=== PATIENT | female | born 1960 | race Asian ===

== ENCOUNTER 2019-02-05 13:16 | Observation (INO) ==
[2019-02-05] MEDS ORDERED: ONDANSETRON INJ 2 MG/ML 2 ML VIAL IV STA (13:45)
[2019-02-05] MEDS ORDERED: SODIUM CHLORIDE 0.9% 1000ML 1,000 ML IV ONE (13:45)
--- NOTE | 2019-02-05 14:13 | XRay Report ---
XR chest 1V portable CLINICAL HISTORY: Cough. Fever. COMPARISON STUDY: No previous studies for comparison. FINDINGS: Exam is mildly compromised by motion artifact. Apparent bibasilar opacities are likely halie factual. There is no consolidation or evidence for pulmonary edema. There is suspected mild cardiomeg angelito. IMPRESSION: No acute cardiopulmonary findings. Electronically signed by: Indio Silverman M.D. 02/05/2019 2:12 PM
[2019-02-05 14:38] LABS: Basophils # (auto) 0.01 K/uL (0-0.2); Basophils % (auto) 0.1 %; Eosinophils # (auto) 0.04 K/uL (0-0.5); Eosinophils % (auto) 0.3 %; Hematocrit (blood only) 39.5 % (37-47); Hemoglobin 14.1 g/dL (12.0-16.0); Immature Granulocytes # (auto) 0.21 K/uL (0.00-0.02); Immature Granulocytes % (auto) 1.5 %; Lymphocytes % (auto) 2.9 %; Mean Corpuscular Hgb Conc 35.7 g/dL (32-36); Mean Corpuscular Volume 79.3 fL (80-100); Mean Platelet Volume 9.8 fL (7.4-10.4); Monocytes # (auto) 0.02 K/uL (0.11-0.59); Monocytes % (auto) 0.1 %; Neutrophils # (auto) 12.92 K/uL (1.4-6.5); Neutrophils % (auto) 95.1 %; Nucleated RBC # (auto) 0.02 K/uL (0-0); Nucleated RBC % (auto) 0.1 %; Platelet Count 213 K/uL (130-400); RDW Coefficient of Variation 13.2 % (11.5-14.5); RDW Standard Deviation 37.7 fL (36.4-46.3); Red Blood Count 4.98 M/uL (4.2-5.4)
--- NOTE | 2019-02-05 14:39 | Emergency Department Note ---
History of Present Illness General Chief complaint: Illness Stated complaint: CHILLS, NAUSEA, INDIGESTION History of Present Illness This patient is a 58-year-old female returns to the emergency department with co mplaints of ongoing epigastric pain, nausea and chills that started a few days ago. The patient was seen in the emergency department yesterday for similar symptoms. She is here for graduation, and very much wanted to be discharged home. The patient developed chills and body aches this morning. She also notes that the pain is now down in the right lower abdomen. She describes it as a dull, ache that is worse with movement. The patient also reports a mild, nonproductive cough. She denies any urinary symptoms. Of note, 1 of the patient's relatives was diagnosed with influenza. She has tried Tylenol and Pepcid [id number] with minimal relief of her symptoms. She has had some loose stool, but no watery stools. No blood or black, tarry stools. No hematemesis or coffee-ground emesis. Home Medications Home Medications Medication Instructions Recorded Confirmed Type ondansetron 4 mg PO Q6H PRN #10 tab 02/04/19 02/05/19 Rx Allergies Allergy/AdvReac Type Severity Reaction Status Date / Time cough medicine Allergy Mild Unknown Uncoded 02/05/19 18:30 Past Med/Surg History Medical History Acute abdominal pain Gallbladder disease (Chronic) Hx of gastroesophageal reflux (GERD) Suspected cause of chronic cough Neck pain Obesity Surgical History H/O section (Resolved) Social History Preferred Language: Khmer Communication Ability: Effective Stars Analytical Lead Required: No Beliefs That Will Affect Care: None marital status: Current Living Situation: Spouse and Family current occupational status: employed Other Information That Helps Us Care for You: Yes (Lives in [facility], 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) Feels Safe at Home: Yes Safety Concerns: Feels Safe At This Time Smoking Status: Current some day smoker Tobacco Type: cigarettes Do You Dip or Chew Tobacco: No Second Hand Exposure: No Tobacco Cessation Education Requested by Patient: No Hx Alcohol Use: No Hx Substance Use: No Review of Systems A total of 10 systems reviewed and were otherwise negative Physical Exam Vital Signs Vital Signs - 24 hr 02/05/19 17:01 02/05/19 18:29 02/05/19 18:32 Temperature 37.1 C Temperature Source Oral Pulse Rate [Apical] Pulse Rate [Right Finger] 96 H 93 H Pulse Rhythm [Apical] Pulse Rhythm [Right Finger] Regular Pulse Strength [Right Finger] Normal Respiratory Rate 20 20 Respiratory Effort / Characteristics Non-Labored Spontaneous Non-Labored Spontaneous Respiratory Depth Normal Normal Respiratory Pattern Regular Regular Blood Pressure [Left Arm] Blood Pressure [Right Arm] 97/60 L 115/66 Blood Pressure Mean [Left Arm] Blood Pressure Mean [Right Arm] 72 82 Blood Pressure Position [Left Arm] Blood Pressure Position [Right Arm] Lying Semi-fowlers Pulse Oximetry 97 100 Oxygen Delivery Method Room Air Room Air Room Air Oxygen Flow Rate 02/05/19 20:29 02/05/19 20:35 02/05/19 20:45 Temperature 36.7 C Temperature Source Temporal Artery Scan Pulse Rate [Apical] 113 H 100 H 87 Pulse Rate [Right Finger] Pulse Rhythm [Apical] Regular Regular Regular Pulse Rhythm [Right Finger] Pulse Strength [Right Finger] Respiratory Rate 22 16 17 Respiratory Effort / Characteristics Non-Labored Spontaneous Non-Labored Spontaneous Non-Labored Spontaneous Respiratory Depth Normal Normal Normal Respiratory Pattern Regular Regular Regular Blood Pressure [Left Arm] 162/86 H 142/78 H 117/69 Blood Pressure [Right Arm] Blood Pressure Mean [Left Arm] 111 99 85 Blood Pressure Mean [Right Arm] Blood Pressure Position [Left Arm] Semi-fowlers Semi-fowlers Semi-fowlers Blood Pressure Position [Right Arm] Pulse Oximetry 97 100 100 Oxygen Delivery Method Oxymask Oxymask Oxymask Oxygen Flow Rate 10 10 10 02/05/19 20:55 02/05/19 21:05 02/05/19 21:15 Temperature 36.6 C Temperature Source Temporal Artery Scan Pulse Rate [Apical] 87 87 80 Pulse Rate [Right Finger] Pulse Rhythm [Apical] Regular Regular Regular Pulse Rhythm [Right Finger] Pulse Strength [Right Finger] Respiratory Rate 15 15 16 Respiratory Effort / Characteristics Non-Labored Spontaneous Non-Labored Spontaneous Non-Labored Spontaneous Respiratory Depth Normal Normal Normal Respiratory Pattern Regular Regular Regular Blood Pressure [Left Arm] 106/61 98/49 L 104/52 L Blood Pressure [Right Arm] Blood Pressure Mean [Left Arm] 76 65 69 Blood Pressure Mean [Right Arm] Blood Pressure Position [Left Arm] Semi-fowlers Semi-fowlers Semi-fowlers Blood Pressure Position [Right Arm] Pulse Oximetry 98 98 97 Oxygen Delivery Method Nasal Cannula Nasal Cannula Nasal Cannula Oxygen Flow Rate 2 2 2 02/05/19 21:25 02/05/19 22:00 02/05/19 22:19 Temperature 37.3 C Temperature Source Oral Pulse Rate [Apical] Pulse Rate [Right Finger] 78 69 69 Pulse Rhythm [Apical] Pulse Rhythm [Right Finger] Regular Pulse Strength [Right Finger] Normal Respiratory Rate 16 16 16 Respiratory Effort / Characteristics Non-Labored Respiratory Depth Normal Respiratory Pattern Regular Blood Pressure [Left Arm] 97/59 L 109/67 118/69 Blood Pressure [Right Arm] Blood Pressure Mean [Left Arm] 71 81 85 Blood Pressure Mean [Right Arm] Blood Pressure Position [Left Arm] Lying Lying Blood Pressure Position [Right Arm] Pulse Oximetry 92 97 93 Oxygen Delivery Method Room Air Room Air Room Air Oxygen Flow Rate 02/05/19 23:25 02/06/19 00:24 02/06/19 03:51 Temperature 37.0 C 36.9 C 36.8 C Temperature Source Oral Oral Oral Pulse Rate [Apical] Pulse Rate [Right Finger] 70 73 72 Pulse Rhythm [Apical] Pulse Rhythm [Right Finger] Regular Regular Regular Pulse Strength [Right Finger] Normal Normal Normal Respiratory Rate 18 18 18 Respiratory Effort / Characteristics Respiratory Depth Normal Normal Normal Respiratory Pattern Regular Regular Regular Blood Pressure [Left Arm] 115/72 122/67 108/70 Blood Pressure [Right Arm] Blood Pressure Mean [Left Arm] 86 85 82 Blood Pressure Mean [Right Arm] Blood Pressure Position [Left Arm] Lying Lying Lying Blood Pressure Position [Right Arm] Pulse Oximetry 93 94 96 Oxygen Delivery Method Room Air Room Air Room Air Oxygen Flow Rate 02/06/19 07:25 02/06/19 12:07 02/06/19 15:46 Temperature 36.8 C 36.3 C L 36.6 C Temperature Source Oral Oral Oral Pulse Rate [Apical] Pulse Rate [Right Finger] 59 L 52 L 62 Pulse Rhythm [Apical] Pulse Rhythm [Right Finger] Pulse Strength [Right Finger] Respiratory Rate 16 16 18 Respiratory Effort / Characteristics Respiratory Depth Normal Respiratory Pattern Blood Pressure [Left Arm] 111/71 120/75 118/75 Blood Pressure [Right Arm] Blood Pressure Mean [Left Arm] 84 90 89 Blood Pressure Mean [Right Arm] Blood Pressure Position [Left Arm] Lying Lying Blood Pressure Position [Right Arm] Pulse Oximetry 97 98 100 Oxygen Delivery Method Oxygen Flow Rate Constitutional WD/WN, vitals as above Eyes EOM intact bilaterally ENMT external ear and nose normal, oropharynx normal Oral mucosa dry Neck trachea midline Respiratory normal respiratory effort, lungs clear to auscultation Cardiovascular RRR, no murmur, no edema Gastrointestinal (Abdomen) Tenderness to palpation in the right upper and right lower quadrant. No guarding or rebound tenderness. Abdomen is slightly distended, but soft. Bowel sounds present in all 4 quadrants. Musculoskeletal no cyanosis or clubbing, extremities motor strength 5/5 Skin no rashes, warm and dry Neurologic Alert and oriented x3. No focal motor deficits. Psychiatric Acting appropriately Course Patient was seen and examined Vital signs including blood pressure were reviewed medications list was verified with patient Labs were obtained, and a saline lock was established The patient was ordered Zofran 4 mg IV and 1 L of normal saline. She declined pain medication. Imaging was performed and reviewed These findings were discussed with the patient. She voiced understanding. A general surgery consult was placed. They agreed to evaluate the patient. The patient was taken to the OR from the emergency department in stable condition Consultations Consultation #1: Dr. Herman Administered Medications Enoxaparin Sodium (Lovenox) 40 mg SQ QAM [facility] Stop: 03/08/19 08:59 Last Admin: 02/06/19 08:57 Dose: 40 mg Documented by: [id number] Potassium Chloride/Dextrose/Sod Cl (D5w And 1/2nss + 30meq Kcl) 30 meq in 1,000 mls @ 80 mls/hr IV .[id number] [facility] Stop: 03/07/19 21:59 Last Admin: 02/06/19 11:32 Dose: 80 mls/hr Documented by: [id number] Infusion: 02/06/19 09:13 Dose: 0 mls/hr Documented by: [id number] Admin: 02/05/19 22:35 Dose: 80 mls/hr Documented by: [id number] Ciprofloxacin (Cipro) 400 mg in 200 mls @ 100 mls/hr IV Q12H [facility] Stop: 02/08/19 07:59 Last Infusion: 02/06/19 10:35 Dose: 0 mls/hr Documented by: [id number] Admin: 02/06/19 08:49 Dose: 100 mls/hr Documented by: [id number] Metronidazole (Flagyl) 500 mg in 100 mls @ 100 mls/hr IV Q8H YEE Stop: 02/08/19 07:59 Last Infusion: 02/06/19 09:48 Dose: 0 mls/hr Documented by: [id number] Admin: 02/06/19 08:53 Dose: 100 mls/hr Documented by: [id number] Ondansetron HCl (Zofran) 4 mg IV Q6H PRN PRN Reason: Nausea Stop: 03/07/19 18:47 Last Admin: 02/05/19 22:34 Dose: 4 mg Documented by: [id number] Discontinued Medications Bacitracin (Bacitracin) Confirm Administered Dose 45 appln .ROUTE .STK-MED ONE Stop: 02/05/19 18:25 Last Admin: 02/05/19 19:46 Dose: 45 appln Documented by: [id number] Bupivacaine HCl (Marcaine 0.5% Mpf) Confirm Administered Dose 30 ml .ROUTE .STK- MED ONE Stop: 02/05/19 18:25 Last Admin: 02/05/19 19:51 Dose: 20 ml Documented by: [id number] Sodium Chloride (Nss 1000ml) 1,000 mls @ 999 mls/hr IV .Q1H1M ONE Stop: 02/05/19 14:45 Last Infusion: 02/05/19 15:36 Dose: 0 mls/hr Documented by: [id number] Admin: 02/05/19 14:25 Dose: 999 mls/hr Documented by: [id number] Potassium Chloride (K Melo / Wtr) 10 meq in 100 mls @ 100 mls/hr IV ONE ONE Stop: 02/05/19 19:09 Last Infusion: 02/05/19 20:05 Dose: 0 mls/hr Documented by: [id number] Admin: 02/05/19 19:05 Dose: 100 mls/hr Documented by: [id number] Cefoxitin Sodium (Mefoxin) 2,000 mg in 60 mls @ 100 mls/hr IV 1845 ONE Stop: 02/05/19 19:20 Last Infusion: 02/05/19 23:26 Dose: 0 mls/hr Documented by: [id number] Admin: 02/05/19 19:10 Dose: 100 mls/hr Documented by: [id number] Potassium Chloride (K Melo / Wtr) 10 meq in 100 mls @ 100 mls/hr IV Q1H STA Stop: 02/05/19 19:45 Last Infusion: 02/05/19 20:40 Dose: 0 mls/hr Documented by: [id number] Admin: 02/05/19 19:40 Dose: 100 mls/hr Documented by: [id number] Cefoxitin Sodium 1,000 mg/ (Dextrose) 60 mls @ 100 mls/hr IV Q6H YEE Stop: 02/07/19 00:00 Last Infusion: 02/06/19 12:14 Dose: 0 mls/hr Documented by: [id number] Admin: 02/06/19 11:33 Dose: 100 mls/hr Documented by: [id number] Infusion: 02/06/19 06:29 Dose: 0 mls/hr Documented by: [id number] Admin: 02/06/19 05:53 Dose: 100 mls/hr Documented by: [id number] Infusion: 02/06/19 01:11 Dose: 0 mls/hr Documented by: [id number] Admin: 02/06/19 00:35 Dose: 100 mls/hr Documented by: [id number] Potassium Chloride (K Melo / Wtr) 10 meq in 100 mls @ 100 mls/hr IV Q1H YEE Stop: 02/05/19 22:59 Last Infusion: 02/05/19 23:35 Dose: 0 mls/hr Documented by: [id number] Admin: 02/05/19 22:35 Dose: 100 mls/hr Documented by: [id number] Ioversol (Optiray 320 100ml) 94 ml IV ONCE PRN PRN Reason: Interaction Checking Stop: 02/09/19 16:10 Last Admin: 02/05/19 16:12 Dose: 94 ml Documented by: [id number] Lidocaine HCl (Xylocaine 1% (Local)) Confirm Administered Dose 20 ml .ROUTE .STK-MED ONE Stop: 02/05/19 18:25 Last Admin: 02/05/19 19:52 Dose: 20 ml Documented by: [id number] Ondansetron HCl (Zofran) 4 mg IV NOW STA Stop: 02/05/19 13:46 Last Admin: 02/05/19 14:25 Dose: 4 mg Documented by: [id number] Medical Decision Making Medical Records Attestation: I reviewed the patient's medical records. Home Medications Current Medication List: was personally reviewed by me Laboratory Data Attestation: I reviewed the patient's lab results. Result diagrams: 02/06/19 05:22 02/06/19 05:22 Lab Results 02/05/19 02/05/19 02/05/19 Range/Units 13:45 13:45 14:23 WBC 13.60 H (4.8-10.8) K/uL RBC 4.98 (4.2-5.4) M/uL Hgb 14.1 (12.0-16.0) g/dL Hct 39.5 (37-47) % MCV 79.3 L (80-100) fL MCH 28.3 (25-34) pg MCHC 35.7 (32-36) g/dL RDW Std Deviation 37.7 (36.4-46.3) fL RDW Coeff of Tania 13.2 (11.5-14.5) % Plt Count 213 (130-400) K/uL MPV 9.8 (7.4-10.4) fL Immature Gran % (Auto) 1.5 % Neut % (Auto) 95.1 % Lymph % (Auto) 2.9 % [place] % (Auto) 0.1 % Eos % (Auto) 0.3 % Baso % (Auto) 0.1 % Immature Gran # (Auto) 0.21 H (0.00-0.02) K/uL Neut # (Auto) 12.92 H (1.4-6.5) K/uL Lymph # (Auto) 0.40 L (1.2-3.4) K/uL [place] # (Auto) 0.02 L (0.11-0.59) K/uL Eos # (Auto) 0.04 (0-0.5) K/uL Baso # (Auto) 0.01 (0-0.2) K/uL Absolute Nucleated RBC 0.02 H (0-0) K/uL Nucleated RBC % (auto) 0.1 % Toxic Vacuolation PT (9.0-12.0) Seconds INR (0.9-1.1) Sodium 133 L (136-145) mmol/L Potassium 3.2 L (3.5-5.1) mmol/L Chloride 99 (98-107) mmol/L Carbon Dioxide 24 (21-32) mmol/L Anion Gap 10.0 (3-11) BUN 12 (7-18) mg/dl Creatinine 1.09 (0.6-1.2) mg/dl Est Cr Clr Drug Dosing Not Reportable Est GFR ( Amer) 65.7 Est GFR (Non-Af Amer) 56.7 BUN/Creatinine Ratio 10.6 (10-20) Glucose 144 H (70-99) mg/dl Calcium 8.5 (8.5-10.1) mg/dl Total Bilirubin 0.9 D (0.2-1) mg/dl AST 16 (15-37) U/L ALT 29 (12-78) U/L Alkaline Phosphatase 157 H (45-117) U/L Total Protein 6.9 (6.4-8.2) gm/dl Albumin 3.2 L (3.4-5.0) gm/dl Globulin 3.7 (2.5-4.0) gm/dl Albumin/Globulin Ratio 0.9 (0.9-2) Lipase 153 (73-393) U/L Urine Color Urine Appearance (Clear) Urine pH (4.5-7.5) Ur Specific [place] (1.000-1.030) Urine Protein (Negative) Urine Glucose (UA) (Negative) Urine Ketones (Negative) Urine Blood (Negative) Urine Nitrite (Negative) Urine Bilirubin (Negative) Urine Urobilinogen (Negative) Ur Leukocyte Esterase (Negative) Urine WBC (Auto) (0-5) /hpf Urine RBC (Auto) (0-4) /hpf U Hyaline Cast (Auto) (0-5) /lpf U Epithel Cells (Auto) (0-5) /lpf Urine Bacteria (Auto) (Negative) Influenza Type A (PCR) Neg for Influ A (Neg) Influenza Type B (PCR) Neg for Influ B (Neg) 02/05/19 02/06/19 02/06/19 Range/Units 14:23 05:22 05:22 WBC 28.57 H D (4.8-10.8) K/uL RBC 4.41 (4.2-5.4) M/uL Hgb 12.4 (12.0-16.0) g/dL Hct 35.3 L (37-47) % MCV 80.0 (80-100) fL MCH 28.1 (25-34) pg MCHC 35.1 (32-36) g/dL RDW Std Deviation 39.4 (36.4-46.3) fL RDW Coeff of Tania 13.6 (11.5-14.5) % Plt Count 216 (130-400) K/uL MPV 9.4 (7.4-10.4) fL Immature Gran % (Auto) 0.4 % Neut % (Auto) 94.6 % Lymph % (Auto) 2.2 % [place] % (Auto) 2.8 % Eos % (Auto) 0.0 % Baso % (Auto) 0.0 % Immature Gran # (Auto) 0.11 H (0.00-0.02) K/uL Neut # (Auto) 27.01 H (1.4-6.5) K/uL Lymph # (Auto) 0.64 L (1.2-3.4) K/uL [place] # (Auto) 0.80 H (0.11-0.59) K/uL Eos # (Auto) 0.00 (0-0.5) K/uL Baso # (Auto) 0.01 (0-0.2) K/uL Absolute Nucleated RBC (0-0) K/uL Nucleated RBC % (auto) % Toxic Vacuolation 1+ PT (9.0-12.0) Seconds INR (0.9-1.1) Sodium 132 L (136-145) mmol/L Potassium 4.2 D (3.5-5.1) mmol/L Chloride 103 (98-107) mmol/L Carbon Dioxide 26 (21-32) mmol/L Anion Gap 3.0 (3-11) BUN 13 (7-18) mg/dl Creatinine 1.17 (0.6-1.2) mg/dl Est Cr Clr Drug Dosing 57.5 Est GFR ( Amer) 60.3 Est GFR (Non-Af Amer) 52.0 BUN/Creatinine Ratio 11.2 (10-20) Glucose 149 H (70-99) mg/dl Calcium 7.8 L (8.5-10.1) mg/dl Total Bilirubin 0.6 (0.2-1) mg/dl AST 24 (15-37) U/L ALT 43 (12-78) U/L Alkaline Phosphatase 122 H (45-117) U/L Total Protein 6.1 L (6.4-8.2) gm/dl Albumin 2.7 L (3.4-5.0) gm/dl Globulin 3.4 (2.5-4.0) gm/dl Albumin/Globulin Ratio 0.8 L (0.9-2) Lipase (73-393) U/L Urine Color Yellow Urine Appearance Clear (Clear) Urine pH 6.5 (4.5-7.5) Ur Specific [place] 1.012 (1.000-1.030) Urine Protein 2+ H (Negative) Urine Glucose (UA) Negative (Negative) Urine Ketones Negative (Negative) Urine Blood Trace H (Negative) Urine Nitrite Negative (Negative) Urine Bilirubin Negative (Negative) Urine Urobilinogen Negative (Negative) Ur Leukocyte Esterase Negative (Negative) Urine WBC (Auto) 1-5 (0-5) /hpf Urine RBC (Auto) 0-4 (0-4) /hpf U Hyaline Cast (Auto) 1-5 (0-5) /lpf U Epithel Cells (Auto) 20-30 H (0-5) /lpf Urine Bacteria (Auto) Negative (Negative) Influenza Type A (PCR) (Neg) Influenza Type B (PCR) (Neg) 02/06/19 Range/Units 05:22 WBC (4.8-10.8) K/uL RBC (4.2-5.4) M/uL Hgb (12.0-16.0) g/dL Hct (37-47) % MCV (80-100) fL MCH (25-34) pg MCHC (32-36) g/dL RDW Std Deviation (36.4-46.3) fL RDW Coeff of Tania (11.5-14.5) % Plt Count (130-400) K/uL MPV (7.4-10.4) fL Immature Gran % (Auto) % Neut % (Auto) % Lymph % (Auto) % [place] % (Auto) % Eos % (Auto) % Baso % (Auto) % Immature Gran # (Auto) (0.00-0.02) K/uL Neut # (Auto) (1.4-6.5) K/uL Lymph # (Auto) (1.2-3.4) K/uL [place] # (Auto) (0.11-0.59) K/uL Eos # (Auto) (0-0.5) K/uL Baso # (Auto) (0-0.2) K/uL Absolute Nucleated RBC (0-0) K/uL Nucleated RBC % (auto) % Toxic Vacuolation PT 11.5 (9.0-12.0) Seconds INR 1.1 (0.9-1.1) Sodium (136-145) mmol/L Potassium (3.5-5.1) mmol/L Chloride (98-107) mmol/L Carbon Dioxide (21-32) mmol/L Anion Gap (3-11) BUN (7-18) mg/dl Creatinine (0.6-1.2) mg/dl Est Cr Clr Drug Dosing Est GFR ( Amer) Est GFR (Non-Af Amer) BUN/Creatinine Ratio (10-20) Glucose (70-99) mg/dl Calcium (8.5-10.1) mg/dl Total Bilirubin (0.2-1) mg/dl AST (15-37) U/L ALT (12-78) U/L Alkaline Phosphatase (45-117) U/L Total Protein (6.4-8.2) gm/dl Albumin (3.4-5.0) gm/dl Globulin (2.5-4.0) gm/dl Albumin/Globulin Ratio (0.9-2) Lipase (73-393) U/L Urine Color Urine Appearance (Clear) Urine pH (4.5-7.5) Ur Specific [place] (1.000-1.030) Urine Protein (Negative) Urine Glucose (UA) (Negative) Urine Ketones (Negative) Urine Blood (Negative) Urine Nitrite (Negative) Urine Bilirubin (Negative) Urine Urobilinogen (Negative) Ur Leukocyte Esterase (Negative) Urine WBC (Auto) (0-5) /hpf Urine RBC (Auto) (0-4) /hpf U Hyaline Cast (Auto) (0-5) /lpf U Epithel Cells (Auto) (0-5) /lpf Urine Bacteria (Auto) (Negative) Influenza Type A (PCR) (Neg) Influenza Type B (PCR) (Neg) Imaging Data Attestation: I personally reviewed and interpreted this imaging study as follows: Radiologist's Impression: Chest x-ray IMPRESSION: No acute cardiopulmonary findings. Electronically signed by: Indio Silverman M.D. 02/05/2019 2:12 PM Dictated: 02/05/19 1411 Transcribed: 02/05/[address] of the abdomen and pelvis with IV and oral contrast 1. Findings compatible with acute uncomplicated appendicitis. No evidence of perforation or drainable fluid collection. 2. No bowel obstruction. 3. Additional findings as above. Electronically signed by: Mikey Cunha M.D. 02/05/2019 4:23 PM Dictated: 02/05/19 1617 Transcribed: 02/05/19 1617 Blood Pressure Blood Pressure Findings: Normal blood pressure MDM Narrative Differential diagnosis: Viral versus bacterial GI illness, appendicitis, choledocholithiasis, cholecystitis, influenza, pneumonia, peptic ulcer disease, gastritis, diverticulitis, UTI, among others This patient is a 58-year-old female presents to the emergency department with ongoing abdominal pain and nausea. She also reported a mild cough. The patient was seen and evaluated in the emergency department a few days ago for similar symptoms, which have not improved. She had some tenderness in the right lower quadrant. Work-up reveals mild leukocytosis. We proceeded with CT, which is consistent with acute uncomplicated appendicitis. Surgery was consulted. They will evaluate the patient for further management. Impression & Plan Acute appendicitis Discharge Plan Visit Data *Final* Discharge Date/Time: 02/05/19 18:32 Chief Complaint: Illness Stated Complaint: CHILLS, NAUSEA, INDIGESTION ED Provider: Richard Hutton ED Midlevel Provider: Nara Sierra Discharge Problem: Acute appendicitis Patient Disposition: Admitted As Inpatient Condition: Fair Discharge Instructions Interventions: ED Discharge Assessment Last Done: 02/05/19 18:32 Discharge Problem: Acute appendicitis Qualifiers: Appendicitis perforation presence: without perforation
[2019-02-05 14:47] LABS: Appearance Urine Clear (Clear); Bacteria Urine Automated Negative (Negative); Bilirubin Urine Negative (Negative); Blood Urine Trace (Negative); Color Urine Yellow; Epithelial Cell Urine Auto 20-30 /lpf (0-5); Glucose Urine UA Negative (Negative); Ketones Urine Negative (Negative); Leukocyte Esterase Urine Negative (Negative); Nitrite Urine Negative (Negative); Protein Urine 2+ (Negative); RBC Urine Automated 0-4 /hpf (0-4); Specific Gravity Urine 1.012 (1.000-1.030); Urobilinogen Urine Negative (Negative); pH Urine 6.5 (4.5-7.5)
[2019-02-05 14:50] LABS: Alanine Aminotransferase 29 U/L (12-78); Albumin Level 3.2 gm/dl (3.4-5.0); Aspartate Aminotransferase 16 U/L (15-37); BUN Creatinine Ratio 10.6 (10-20); Blood Urea Nitrogen 12 mg/dl (7-18); Calcium 8.5 mg/dl (8.5-10.1); Carbon Dioxide 24 mmol/L (21-32); Chloride 99 mmol/L (98-107); Est GFR (African American) 65.7; Est GFR (Non-African American) 56.7; Glucose 144 mg/dl (70-99); Potassium 3.2 mmol/L (3.5-5.1); Sodium 133 mmol/L (136-145)
[2019-02-05 14:54] LABS: Albumin Globulin Ratio 0.9 (0.9-2); Alkaline Phosphatase 157 U/L (45-117); Bilirubin,Total 0.9 mg/dl (0.2-1); Globulin 3.7 gm/dl (2.5-4.0); Total Protein 6.9 gm/dl (6.4-8.2)
[2019-02-05 16:05] LABS: Influenza A virus by PCR Neg for Influ A (Neg); Influenza B virus by PCR Neg for Influ B (Neg)
[2019-02-05] MEDS ORDERED: IOVERSOL 100ml IV PRN (16:11)
--- NOTE | 2019-02-05 16:25 | CT Scan Report ---
ABDOMEN AND PELVIS CT WITH IV AND ORAL CONTRAST CT DOSE: 938.72 mGycm HISTORY: Acute right lower quadrant abdominal pain with fever RLQ pain and fever TECHNIQUE: Multiaxial CT images of the abdomen and pelvis were performed following the use of intrave nous and oral contrast. A dose lowering technique was utilized adhering to the principles of ALARA. COMPARISON STUDY: Right upper quadrant abdominal ultrasound 02/04/2019. FINDINGS: Subsegmental bibasilar opacities are suggestive of probable atelectasis. There is no pneumatosis or p neumoperitoneum. The imaged inferior cardiac chambers are unremarkable. Gallbladder, spleen, and adrenal glands are unremarkable. There is a 5 mm cystic focus about the dist al pancreatic body/tail which is indeterminate and may reflect a sidebranch IPMN. There is a 4 mm hyp odense focus of the right hepatic lobe on image 136 series 3 which is too small to characterize and m ay reflect a hepatic cyst. The liver is otherwise unremarkable. Patency of the hepatic and portal vei ns. No evidence of cirrhosis. Mild nonspecific bilateral perinephric stranding. The kidneys, ureters and urinary bladder are unrema rkable. Uterus and left adnexum are within normal limits. Follicular changes about the right ovary. A ivy and IVC are unremarkable. There is no adenopathy by CT size criteria. There is no bowel obstruction. No drainable fluid collection. The appendix is dilated and fluid-fille d with mucosal hyperemia measuring up to 1.6 cm transversely. Moderate periappendiceal inflammation w ith trace free fluid. Soft tissues and breast parenchyma appear unremarkable. There is mild levoscoli osis of the lumbar spine. Degenerative changes of the spine, elbows and hips. IMPRESSION: 1. Findings compatible with acute uncomplicated appendicitis. No evidence of perforation or drainable fluid collection. 2. No bowel obstruction. 3. Additional findings as above. Electronically signed by: Mikey Cunha M.D. 02/05/2019 4:23 PM
--- NOTE | 2019-02-05 18:07 | Surgery Consultation ---
Date of Consultation February 05, 2019 Assessment & Plan (1) Acute abdominal pain: pt is a 58 mikey old female who presents to ER with 2 days history abdominal pain, CT scan dx acute appendicitis, IMP: acute appendicitis, Plan, I recommend to do laparoscopic appendectomy, possible open , D/W benefits, risks and alternatives of the surgery, the risks - infection, bleeding, injury bowel, abscess, , pt understood, she agrees with the surgery, I answered all questions, History of Present Illness History of Present Illness pt is a 58 year-old female who presents to ER with 2 days history epigastric pain and today the pain is located at RLQ with nausea and vomiting, pt also feels chill, T- 38, some diarrhea, pt came to ER yesterday, now pt is still feels RLQ pain, pt had CT scan dx acute appendicitis, pt denies chest pain, no weakness, Allergies Allergy/AdvReac Type Severity Reaction Status Date / Time cough medicine Allergy Mild Unknown Uncoded 02/05/19 14:01 Home Medications Home Medications Medication Instructions Recorded Confirmed Type ondansetron 4 mg PO Q6H PRN #10 tab 02/04/19 02/05/19 Rx Patient History Medical History Gallbladder disease (Chronic) Surgical History H/O section (Resolved) Social History marital status: Current Living Situation: Spouse current occupational status: employed Feels Safe at Home: Yes Smoking Status: Never smoker Review of Systems Constitutional: as per Subjective / HPI Ear, Nose, Mouth, Throat: as per Subjective / HPI Respiratory: as per Subjective / HPI Cardiovascular: as per Subjective / HPI Gastrointestinal: as per Subjective / HPI Genitourinary: as per Subjective / HPI Neurologic: as per Subjective / HPI Psychiatric: as per Subjective / HPI Endocrine: as per Subjective / HPI Hematologic / Lymphatic: as per Subjective / HPI Physical Exam Constitutional: WD/WN, vitals as above well developed and well nourished ENMT: external ear and nose normal, oropharynx normal Neck: trachea midline, no thyromegaly Respiratory: normal respiratory effort, lungs clear to auscultation normal respiratory effort Cardiovascular: RRR, no murmur, no edema Rate/Rhythm: regular rate and regular rhythm Heart Sounds: normal S2 Gastrointestinal (Abdomen): normal bowel sounds, soft, nontender, no hepatosplenomegaly Percussion/Palpation: + abdomen tender, + guarding and abdomen soft tenderness at RLQ, no rebound pain Neurologic: patellar DTR's 2+ bilat, sensation intact Psychiatric: A+Ox3, euthymic affect Results & Data Vital Signs (Past 12 Hours) Vital Signs Temp Pulse Pulse Resp BP BP Pulse Ox 02/05/19 17:01 96 H 20 97/60 L 97 02/05/19 14:30 19 105/73 98 02/05/19 13:19 38.3 C H 99 H 20 152/78 H 100 Laboratory Results Abnormal lab results 02/05/19 02/05/19 02/05/19 Range/Units 13:45 13:45 14:23 WBC 13.60 H (4.8-10.8) K/uL MCV 79.3 L (80-100) fL Immature Gran # (Auto) 0.21 H (0.00-0.02) K/uL Neut # (Auto) 12.92 H (1.4-6.5) K/uL Lymph # (Auto) 0.40 L (1.2-3.4) K/uL [place] # (Auto) 0.02 L (0.11-0.59) K/uL Absolute Nucleated RBC 0.02 H (0-0) K/uL Sodium 133 L (136-145) mmol/L Potassium 3.2 L (3.5-5.1) mmol/L Glucose 144 H (70-99) mg/dl Alkaline Phosphatase 157 H (45-117) U/L Albumin 3.2 L (3.4-5.0) gm/dl Urine Protein 2+ H (Negative) Urine Blood Trace H (Negative) U Epithel Cells (Auto) 20-30 H (0-5) /lpf Diagnostic Findings ABDOMEN AND PELVIS CT WITH IV AND ORAL CONTRAST CT DOSE: 938.72 mGycm HISTORY: Acute right lower quadrant abdominal pain with fever RLQ pain and fever TECHNIQUE: Multiaxial CT images of the abdomen and pelvis were performed following the use of intravenous and oral contrast. A dose lowering technique was utilized adhering to the principles of ALARA. COMPARISON STUDY: Right upper quadrant abdominal ultrasound 02/04/2019. FINDINGS: Subsegmental bibasilar opacities are suggestive of probable atelectasis. There is no pneumatosis or pneumoperitoneum. The imaged inferior cardiac chambers are unremarkable. Gallbladder, spleen, and adrenal glands are unremarkable. There is a 5 mm cystic focus about the distal pancreatic body/tail which is indeterminate and may reflect a sidebranch IPMN. There is a 4 mm hypodense focus of the right hepatic lobe on image 136 series 3 which is too small to characterize and may reflect a hepatic cyst. The liver is otherwise unremarkable. Patency of the hepatic and portal veins. No evidence of cirrhosis. Mild nonspecific bilateral perinephric stranding. The kidneys, ureters and urinary bladder are unremarkable. Uterus and left adnexum are within normal limits. Follicular changes about the right ovary. Aorta and IVC are unremarkable. There is no adenopathy by CT size criteria. There is no bowel obstruction. No drainable fluid collection. The appendix is dilated and fluid-filled with mucosal hyperemia measuring up to 1.6 cm transversely. Moderate periappendiceal inflammation with trace free fluid. Soft tissues and breast parenchyma appear unremarkable. There is mild levoscoliosis of the lumbar spine. Degenerative changes of the spine, elbows and hips. IMPRESSION: 1. Findings compatible with acute uncomplicated appendicitis. No evidence of perforation or drainable fluid collection. 2. No bowel obstruction. 3. Additional findings as above.
[2019-02-05] MEDS ORDERED: LIDOCAINE HCL 2% 2 ML VIAL/AMP(20MG/ML) INFIL ONE (18:10)
[2019-02-05] MEDS ORDERED: POTASSIUM CHLORIDE / WTR 10 MEQ/100 ML PLCT IV ONE (18:10)
[2019-02-05] MEDS ORDERED: PROPOFOL IV EMULSION 10 MG/ML 20 ML VIAL IV ONE (18:10)
[2019-02-05] MEDS ORDERED: NEOSTIGMINE METHYLSULFATE 5 MG/5 ML SYR ONE (18:10)
[2019-02-05] MEDS ORDERED: ROCURONIUM BROMIDE 10 MG/ML 5 ML VIAL ONE (18:10)
[2019-02-05] MEDS ORDERED: LARYING-O-JET KIT (LTA) ONE (18:10)
[2019-02-05] MEDS ORDERED: DEXAMETHASONE SOD INJ 4 MG/ML VIAL ONE (18:10)
[2019-02-05] MEDS ORDERED: GLYCOPYRROLATE 0.2 MG/ML VIAL ONE ×2 (18:10→19:48)
[2019-02-05] MEDS ORDERED: ONDANSETRON INJ 2 MG/ML 2 ML VIAL ONE (18:10)
[2019-02-05] MEDS ORDERED: MIDAZOLAM HCL 1 MG/ML 2ML VIAL ONE (18:11)
[2019-02-05] MEDS ORDERED: fentaNYL citrate 100 MCG/2 ML VIAL ONE ×2 (18:11)
[2019-02-05] MEDS ORDERED: BUPIVACAINE 0.5 % 5 MG/1 ML MPF 30ML VIAL ONE (18:24)
[2019-02-05] MEDS ORDERED: BACITRACIN OINT 15 GM TUBE ONE (18:24)
[2019-02-05] MEDS ORDERED: LIDOCAINE HCL 1% 20 ML VIAL ONE (18:24)
--- NOTE | 2019-02-05 18:36 | Anesthesiology Consultation ---
Date of Service February 05, 2019 Assessment & Plan Chart Review Chart Review: Acceptable Risk for Surgery and Patient NOT seen in Pre Admission Testing Consults Requested none ASA ASA2 Proposed Anesthesia Anesthesia Type: General Risk / Benefits Reviewed With: PT / POA / Parent / Guardian, Accepts Plan and Informed Consent Obtained History Surgery Operation Date: 02/05/19 18:30 Proposed Procedures p Laparoscopic Appendectomy - Chi Herman MD Height/Weight Height: 5 ft 1.81 in Weight: 95.1 kg Allergies Allergy/AdvReac Type Severity Reaction Status Date / Time cough medicine Allergy Mild Unknown Uncoded 02/05/19 18:30 Medications Home Medications Medication Instructions Recorded Confirmed Last Taken ondansetron 4 mg PO Q6H PRN #10 tab 02/04/19 02/05/19 02/04/19 Active Medications Generic Name Dose Route Start Last Admin Trade Name Freq PRN Reason Stop Dose Admin Ioversol 94 ml 02/05/19 16:11 02/05/19 16:12 Optiray 320 100ml IV 02/09/19 16:10 94 ml ONCE PRN Administration Interaction Checking NPO Date Last Intake of Fluids: 02/05/19 Time Last Intake of Fluids: 14:00 Date Last Intake of Solids: 02/05/19 Time Last Intake of Solids: 13:00 Past Medical History Medical History Acute abdominal pain Gallbladder disease (Chronic) Hx of gastroesophageal reflux (GERD) Suspected cause of chronic cough Neck pain Obesity Exercise / Class Metabolic Activity II 4-5 Yardwork/Stairs/Walk up hill positive for sob, negative for cp Past Surgical History Surgical History H/O section (Resolved) Past Anesthesia History No Hx of Anesthesia Complications and No Family Hx of Anesthesia Complications History of PONV No Hx of PONV and No Hx of Motion Sickness Social History Smoking Status: Never smoker Do You Dip or Chew Tobacco: No Hx Alcohol Use: No Hx Substance Use: No Review of Systems right arm tingling and pain due to pinched nerve Physical Exam Vital Signs Last Vital Signs Temp 38.3 C H 02/05/19 13:19 Pulse 96 H 02/05/19 17:01 Resp 20 02/05/19 17:01 BP 97/60 L 02/05/19 17:01 Pulse Ox 97 02/05/19 17:01 ENMT Mouth: no TMJ abnormality and oral opening not small Thyromental Distance: > or= 3.5 Finger Breadths Mallampati Class: II Mouth / Teeth: 1. Right implnts Neck normal visual inspection; neck extension not limited Respiratory normal respiratory effort Auscultation: lungs clear to auscultation bilaterally bilateral bronchial breath sounds Cardiovascular Rate/Rhythm: regular rate and regular rhythm Heart Sounds: no murmur Neurologic moves all extremities Motor/Sensory: + sensory deficit Psychiatric Orientation: alert and oriented x 3 Testing Laboratory Results 02/05/19 13:45 02/05/19 13:45 Urine Color Yellow 02/05/19 14:23 Urine Appearance Clear (Clear) 02/05/19 14:23 Urine pH 6.5 (4.5-7.5) 02/05/19 14:23 Ur Specific [place] 1.012 (1.000-1.030) 02/05/19 14:23 Urine Protein 2+ (Negative) H 02/05/19 14:23 Urine Glucose (UA) Negative (Negative) 02/05/19 14:23 Urine Ketones Negative (Negative) 02/05/19 14:23 Urine Nitrite Negative (Negative) 02/05/19 14:23 Ur Leukocyte Esterase Negative (Negative) 02/05/19 14:23 Urine WBC (Auto) 1-5 /hpf (0-5) 02/05/19 14:23 Urine RBC (Auto) 0-4 /hpf (0-4) 02/05/19 14:23 U Hyaline Cast (Auto) 1-5 /lpf (0-5) 02/05/19 14:23 U Epithel Cells (Auto) 20-30 /lpf (0-5) H 02/05/19 14:23 Urine Bacteria (Auto) Negative (Negative) 02/05/19 14:23
--- NOTE | 2019-02-05 18:37 | History & Physical Bridge Note ---
Date of Service February 05, 2019 History & Physical Bridge Note I have examined the patient, reviewed the History & Physical and in the interval since the performance of the History & Physical I have noted the following changes of clinical significance: no changes noted
[2019-02-05] MEDS ORDERED: cefOXitin 2,000 MG/60 ML BAG IV ONE (18:45)
[2019-02-05] MEDS ORDERED: ePHEDrine sulfate 50 MG/ML AMP IV PRN (18:46)
[2019-02-05] MEDS ORDERED: POTASSIUM CHLORIDE / WTR 10 MEQ/100 ML PLCT IV STA (18:46)
[2019-02-05] MEDS ORDERED: ONDANSETRON INJ 2 MG/ML 2 ML VIAL IV PRN ×2 (18:46→18:48)
[2019-02-05] MEDS ORDERED: fentaNYL citrate 100 MCG/2 ML VIAL IV PRN (18:46)
[2019-02-05] MEDS ORDERED: ATROPINE SULFATE 0.1 MG/ML 10ML SYR IV PRN (18:46)
[2019-02-05] MEDS ORDERED: HYDROmorphone INJ 1 MG/ML SYRINGE IV PRN (18:46)
[2019-02-05] MEDS ORDERED: OXYCODONE/ACETAMINOPHEN 5mg/325mg TAB PO PRN (18:51)
[2019-02-05] MEDS ORDERED: HYDROmorphone INJ 0.5 MG/0.5 ML SYR IV PRN (18:52)
[2019-02-05] MEDS ORDERED: ALBUTEROL HFA INHALER 8.5 GM ONE (19:56)
--- NOTE | 2019-02-05 19:56 | Post Operative Brief Note ---
Immediate Post Op Note v1 Date of Surgery February 05, 2019 Pre & Post Diagnosis Operation Date: 02/05/19 18:30 Pre-Op Diagnosis: Acute abdominal pain Post-Op Diagnosis: Acute appendicitis, micro-perforation Procedure Operation Date: 02/05/19 18:30 Actual Procedures p Laparoscopic Appendectomy(Not Applicable) - Chi Herman MD Surgeon Chi Herman MD Molding Machine Tender assembler surgical garment Estimated Blood Loss 10 Findings Consistent with Post-Op Diagnosis acute appendicitis, with micro-perforation Fluids 600ml Specimens appendix Anesthesia Type General Complications none Disposition Accompanied Patient To Recovery: Yes Disposition: Recovery Room Overlapping Procedure I was immediately available: during the entire case.
--- NOTE | 2019-02-05 21:12 | Anesthesiology Progress Note ---
Date of Service February 05, 2019 Anesthesia Post Procedure Vital Signs Vital Signs: Temp Pulse Pulse Pulse Resp BP BP 02/05/19 20:55 87 15 106/61 02/05/19 20:45 87 17 117/69 02/05/19 20:35 100 H 16 142/78 H 02/05/19 20:29 36.7 C 113 H 22 162/86 H 02/05/19 18:29 37.1 C 93 H 20 02/05/19 17:01 96 H 20 02/05/19 14:30 19 02/05/19 13:19 38.3 C H 99 H 20 152/78 H BP Pulse Ox 02/05/19 20:55 98 02/05/19 20:45 100 02/05/19 20:35 100 02/05/19 20:29 97 02/05/19 18:29 115/66 100 02/05/19 17:01 97/60 L 97 02/05/19 14:30 105/73 98 02/05/19 13:19 100 Transfer of Care Handoff Completed per policy Notes Mental Status: alert / awake / arousable and participated in evaluation Patient Amnestic to Procedure: Yes Nausea / Vomiting: adequately controlled Pain: adequately controlled Airway Patency, RR, SpO2: stable & adequate BP & HR: stable & adequate Hydration State: stable & adequate Anesthetic Complications: no major complications apparent and Pt Satisfied with anesthetic care
[2019-02-05] MEDS ORDERED: ONDANSETRON 4 MG OD TAB PO PRN (21:34)
--- NOTE | 2019-02-05 21:52 | Operative Report ---
DATE OF OPERATION: 02/05/2019 PREOPERATIVE DIAGNOSIS: Acute appendicitis. POSTOPERATIVE DIAGNOSES: Acute appendicitis with microperforation. PROCEDURE: Laparoscopic appendectomy. SURGEON: Dr. Chi Herman. ANESTHESIA: General. ESTIMATED BLOOD LOSS: About 10 mL. FINDINGS: Acute appendicitis with microperforation. All side passed from the appendix. Wound culture sent. COMPLICATIONS: None. INDICATIONS FOR THE PROCEDURE: This is a 58-year-old female who was diagnosed with acute appendicitis and patient required to do the laparoscopic appendectomy, possible open. I did talk to the patient about the benefit, the risk, alternate procedure. I indicated the risks may include but not limited such as bleeding, infection, abscess, injury to the bowel, even , myocardial infarction. The patient understands and she signed informed consent and I answered all questions. DETAILS OF PROCEDURE: We brought the patient to the OR, put the patient in the supine position. The patient received SCD on bilateral legs to prevent DVT. Also, patient received 2 grams cefoxitin IV for prophylactic antibiotic. The patient received general anesthesia without difficulty. The abdomen was prepped and draped in routine sterile fashion. After time out, I injected local anesthesia by using 1% lidocaine mixed with 0.5% Marcaine just above umbilicus. Then I made a small incision just above umbilicus, opened fascia and opened peritoneum under direct vision, put a Pearl trocar in, connected to CO2 to create pneumoperitoneum. Flow rate at 6 liter per minute, pressure not more than 14 mmHg. Once we got a nice pneumoperitoneum, we put the camera in, looked around the abdomen showed a normal small bowel, large bowel, confirmed diagnosis of acute appendicitis. Appendix was significantly enlarged with pus on the outside of the appendix with microperforation. Once we confirmed diagnosis of acute appendicitis, we put another two 5 mm trocar on the left lower quadrant area. Then we mobilized the appendix, used the harmonic to take down the appendiceal, rechecked and no active bleeding. I used a 45 mm Endo-DO stapler for transection on the base of the appendix, rechecked the staple line, intact. No leak. Then we removed the appendix through the catch bag. Minimal pelvic area flow within the wound culture and we suctioned the flow. Once we removed the appendix, then we reinserted Pearl trocar in, connected to CO2 to create pneumoperitoneum, again looked around the abdomen. The staple lines were intact and no active bleeding. Then we removed all the trocars under direct vision. No active bleeding from the trocar sites. Pneumoperitoneum was released. I closed the umbilical incision, fascial layer by using #1 Vicryl [id number] x2, closed subcutaneous layer by using 2-0 Vicryl interrupted and closed skin by using 4-0 Vicryl continuous running, closed another two 5 mm trocar site of skin only by using 4-0 Vicryl. Then we put the dressing on. The patient tolerated the procedure well. All the instruments, needle and sponge count were correct x2 at the end of case. The patient transferred to recovery room in stable condition. After the procedure, I did talk to the patient's and daughter about the OR finding and procedure we did, they understand. I attest to the content of the Intraoperative Record and any orders documented therein. Any exception s are noted below.
[2019-02-05] MEDS ORDERED: POTASSIUM CHLORIDE / WTR 10 MEQ/100 ML PLCT IV SCH (22:00)
[2019-02-05] MEDS: D5W AND 1/2NSS + 30MEQ KCL 30 MEQ/1,000 ML BAG IV SCH (22:35)
[2019-02-06 05:47] LABS: INR 1.1 (0.9-1.1); Prothrombin Time 11.5 Seconds (9.0-12.0)
[2019-02-06 06:00] LABS: Basophils # (auto) 0.01 K/uL (0-0.2); Hematocrit (blood only) 35.3 % (37-47); Hemoglobin 12.4 g/dL (12.0-16.0); Immature Granulocytes # (auto) 0.11 K/uL (0.00-0.02); Immature Granulocytes % (auto) 0.4 %; Lymphocytes # (auto) 0.64 K/uL (1.2-3.4); Lymphocytes % (auto) 2.2 %; Mean Corpuscular Hgb Conc 35.1 g/dL (32-36); Mean Platelet Volume 9.4 fL (7.4-10.4); Monocytes % (auto) 2.8 %; Neutrophils # (auto) 27.01 K/uL (1.4-6.5); Neutrophils % (auto) 94.6 %; Platelet Count 216 K/uL (130-400); RDW Coefficient of Variation 13.6 % (11.5-14.5); RDW Standard Deviation 39.4 fL (36.4-46.3); Red Blood Count 4.41 M/uL (4.2-5.4); Toxic Vacuolation 1+; White Blood Count 28.57 K/uL (4.8-10.8)
[2019-02-06 06:07] LABS: Albumin Globulin Ratio 0.8 (0.9-2); Albumin Level 2.7 gm/dl (3.4-5.0); BUN Creatinine Ratio 11.2 (10-20); Bilirubin,Total 0.6 mg/dl (0.2-1); Calcium 7.8 mg/dl (8.5-10.1); Creatinine Clr Calc Pharmacy 57.5 ml/min; Est GFR (African American) 60.3; Globulin 3.4 gm/dl (2.5-4.0); Potassium 4.2 mmol/L (3.5-5.1); Total Protein 6.1 gm/dl (6.4-8.2)
[2019-02-06] MEDS: CIPROFLOXACIN 400 MG/200 ML BAG IV SCH ×2 (08:49→21:49)
[2019-02-06] MEDS: metroNIDAZOLE 500 MG/100 ML BAG IV SCH ×2 (08:53→18:08)
[2019-02-06] MEDS: ENOXAPARIN INJ 40 MG/0.4 ML SYR SQ SCH (08:57)
[2019-02-06] MEDS: D5W AND 1/2NSS + 30MEQ KCL 30 MEQ/1,000 ML BAG IV SCH (11:32)
--- NOTE | 2019-02-06 11:37 | Surgery Progress Note ---
Date of Service February 06, 2019 Assessment & Plan (1) Acute appendicitis: POD # 1 s/p lap appy with microperforation -vitals stable, afebrile - Leukocytosis increased to 28.5K today (likely postop and because of microperforation) - post op pain minimal and controlled - no n/v, tolerating clear liquids - + bowel movement - urinating without difficulty Plan: Advance diet to full liquids for today Continue PO Percocet prn pain, breakthrough Dilaudid IV Continue IV Abx Continue IV Zofran prn nausea encouraged OOB to chair and ambulate SCDs for DVT prophylaxis Case management consult given insurance questions Dr. Herman has seen patient, agrees with above Subjective feeling better preoperative pain resolved, post operative pain controlled no n/v tolerated clear liquids no chest pain, sob, dizziness urinating without difficulty Physical Exam Constitutional: WD/WN, vitals as above no acute distress and not ill appearing Respiratory: normal respiratory effort; no respiratory distress Gastrointestinal (Abdomen): Inspection/Auscultation: abdomen normal to inspection; abdomen not distended Percussion/Palpation: + abdomen tender (mild at incision sites) and abdomen soft; no guarding and abdomen not rigid Skin: no rashes, warm and dry + incision (covered with dressings, dry, mild spotting ) Psychiatric: A+Ox3, euthymic affect Results & Data Vital Signs (Past 12 Hours) Vital Signs Temp Pulse Resp BP Pulse Ox 02/06/19 07:25 36.8 C 59 L 16 111/71 97 02/06/19 03:51 36.8 C 72 18 108/70 96 02/06/19 00:24 36.9 C 73 18 122/67 94 Laboratory Results 02/06/19 02/06/19 02/06/19 Range/Units 05:22 05:22 05:22 WBC 28.57 H D (4.8-10.8) K/uL RBC 4.41 (4.2-5.4) M/uL Hgb 12.4 (12.0-16.0) g/dL Hct 35.3 L (37-47) % MCV 80.0 (80-100) fL MCH 28.1 (25-34) pg MCHC 35.1 (32-36) g/dL RDW Std Deviation 39.4 (36.4-46.3) fL RDW Coeff of Tania 13.6 (11.5-14.5) % Plt Count 216 (130-400) K/uL MPV 9.4 (7.4-10.4) fL Immature Gran % (Auto) 0.4 % Neut % (Auto) 94.6 % Lymph % (Auto) 2.2 % [place] % (Auto) 2.8 % Eos % (Auto) 0.0 % Baso % (Auto) 0.0 % Immature Gran # (Auto) 0.11 H (0.00-0.02) K/uL Neut # (Auto) 27.01 H (1.4-6.5) K/uL Lymph # (Auto) 0.64 L (1.2-3.4) K/uL [place] # (Auto) 0.80 H (0.11-0.59) K/uL Eos # (Auto) 0.00 (0-0.5) K/uL Baso # (Auto) 0.01 (0-0.2) K/uL Absolute Nucleated RBC (0-0) K/uL Nucleated RBC % (auto) % Toxic Vacuolation 1+ PT 11.5 (9.0-12.0) Seconds INR 1.1 (0.9-1.1) Sodium 132 L (136-145) mmol/L Potassium 4.2 D (3.5-5.1) mmol/L Chloride 103 (98-107) mmol/L Carbon Dioxide 26 (21-32) mmol/L Anion Gap 3.0 (3-11) BUN 13 (7-18) mg/dl Creatinine 1.17 (0.6-1.2) mg/dl Est Cr Clr Drug Dosing 57.5 Est GFR ( Amer) 60.3 Est GFR (Non-Af Amer) 52.0 BUN/Creatinine Ratio 11.2 (10-20) Glucose 149 H (70-99) mg/dl Calcium 7.8 L (8.5-10.1) mg/dl Total Bilirubin 0.6 (0.2-1) mg/dl AST 24 (15-37) U/L ALT 43 (12-78) U/L Alkaline Phosphatase 122 H (45-117) U/L Total Protein 6.1 L (6.4-8.2) gm/dl Albumin 2.7 L (3.4-5.0) gm/dl Globulin 3.4 (2.5-4.0) gm/dl Albumin/Globulin Ratio 0.8 L (0.9-2) Lipase (73-393) U/L Urine Color Urine Appearance (Clear) Urine pH (4.5-7.5) Ur Specific [place] (1.000-1.030) Urine Protein (Negative) Urine Glucose (UA) (Negative) Urine Ketones (Negative) Urine Blood (Negative) Urine Nitrite (Negative) Urine Bilirubin (Negative) Urine Urobilinogen (Negative) Ur Leukocyte Esterase (Negative) Urine WBC (Auto) (0-5) /hpf Urine RBC (Auto) (0-4) /hpf U Hyaline Cast (Auto) (0-5) /lpf U Epithel Cells (Auto) (0-5) /lpf Urine Bacteria (Auto) (Negative) Influenza Type A (PCR) (Neg) Influenza Type B (PCR) (Neg) 02/05/19 02/05/19 02/05/19 Range/Units 14:23 14:23 13:45 WBC (4.8-10.8) K/uL RBC (4.2-5.4) M/uL Hgb (12.0-16.0) g/dL Hct (37-47) % MCV (80-100) fL MCH (25-34) pg MCHC (32-36) g/dL RDW Std Deviation (36.4-46.3) fL RDW Coeff of Tania (11.5-14.5) % Plt Count (130-400) K/uL MPV (7.4-10.4) fL Immature Gran % (Auto) % Neut % (Auto) % Lymph % (Auto) % [place] % (Auto) % Eos % (Auto) % Baso % (Auto) % Immature Gran # (Auto) (0.00-0.02) K/uL Neut # (Auto) (1.4-6.5) K/uL Lymph # (Auto) (1.2-3.4) K/uL [place] # (Auto) (0.11-0.59) K/uL Eos # (Auto) (0-0.5) K/uL Baso # (Auto) (0-0.2) K/uL Absolute Nucleated RBC (0-0) K/uL Nucleated RBC % (auto) % Toxic Vacuolation PT (9.0-12.0) Seconds INR (0.9-1.1) Sodium 133 L (136-145) mmol/L Potassium 3.2 L (3.5-5.1) mmol/L Chloride 99 (98-107) mmol/L Carbon Dioxide 24 (21-32) mmol/L Anion Gap 10.0 (3-11) BUN 12 (7-18) mg/dl Creatinine 1.09 (0.6-1.2) mg/dl Est Cr Clr Drug Dosing Not Reportable Est GFR ( Amer) 65.7 Est GFR (Non-Af Amer) 56.7 BUN/Creatinine Ratio 10.6 (10-20) Glucose 144 H (70-99) mg/dl Calcium 8.5 (8.5-10.1) mg/dl Total Bilirubin 0.9 D (0.2-1) mg/dl AST 16 (15-37) U/L ALT 29 (12-78) U/L Alkaline Phosphatase 157 H (45-117) U/L Total Protein 6.9 (6.4-8.2) gm/dl Albumin 3.2 L (3.4-5.0) gm/dl Globulin 3.7 (2.5-4.0) gm/dl Albumin/Globulin Ratio 0.9 (0.9-2) Lipase 153 (73-393) U/L Urine Color Yellow Urine Appearance Clear (Clear) Urine pH 6.5 (4.5-7.5) Ur Specific [place] 1.012 (1.000-1.030) Urine Protein 2+ H (Negative) Urine Glucose (UA) Negative (Negative) Urine Ketones Negative (Negative) Urine Blood Trace H (Negative) Urine Nitrite Negative (Negative) Urine Bilirubin Negative (Negative) Urine Urobilinogen Negative (Negative) Ur Leukocyte Esterase Negative (Negative) Urine WBC (Auto) 1-5 (0-5) /hpf Urine RBC (Auto) 0-4 (0-4) /hpf U Hyaline Cast (Auto) 1-5 (0-5) /lpf U Epithel Cells (Auto) 20-30 H (0-5) /lpf Urine Bacteria (Auto) Negative (Negative) Influenza Type A (PCR) Neg for Influ A (Neg) Influenza Type B (PCR) Neg for Influ B (Neg) 02/05/19 Range/Units 13:45 WBC 13.60 H (4.8-10.8) K/uL RBC 4.98 (4.2-5.4) M/uL Hgb 14.1 (12.0-16.0) g/dL Hct 39.5 (37-47) % MCV 79.3 L (80-100) fL MCH 28.3 (25-34) pg MCHC 35.7 (32-36) g/dL RDW Std Deviation 37.7 (36.4-46.3) fL RDW Coeff of Tania 13.2 (11.5-14.5) % Plt Count 213 (130-400) K/uL MPV 9.8 (7.4-10.4) fL Immature Gran % (Auto) 1.5 % Neut % (Auto) 95.1 % Lymph % (Auto) 2.9 % [place] % (Auto) 0.1 % Eos % (Auto) 0.3 % Baso % (Auto) 0.1 % Immature Gran # (Auto) 0.21 H (0.00-0.02) K/uL Neut # (Auto) 12.92 H (1.4-6.5) K/uL Lymph # (Auto) 0.40 L (1.2-3.4) K/uL [place] # (Auto) 0.02 L (0.11-0.59) K/uL Eos # (Auto) 0.04 (0-0.5) K/uL Baso # (Auto) 0.01 (0-0.2) K/uL Absolute Nucleated RBC 0.02 H (0-0) K/uL Nucleated RBC % (auto) 0.1 % Toxic Vacuolation PT (9.0-12.0) Seconds INR (0.9-1.1) Sodium (136-145) mmol/L Potassium (3.5-5.1) mmol/L Chloride (98-107) mmol/L Carbon Dioxide (21-32) mmol/L Anion Gap (3-11) BUN (7-18) mg/dl Creatinine (0.6-1.2) mg/dl Est Cr Clr Drug Dosing Est GFR ( Amer) Est GFR (Non-Af Amer) BUN/Creatinine Ratio (10-20) Glucose (70-99) mg/dl Calcium (8.5-10.1) mg/dl Total Bilirubin (0.2-1) mg/dl AST (15-37) U/L ALT (12-78) U/L Alkaline Phosphatase (45-117) U/L Total Protein (6.4-8.2) gm/dl Albumin (3.4-5.0) gm/dl Globulin (2.5-4.0) gm/dl Albumin/Globulin Ratio (0.9-2) Lipase (73-393) U/L Urine Color Urine Appearance (Clear) Urine pH (4.5-7.5) Ur Specific [place] (1.000-1.030) Urine Protein (Negative) Urine Glucose (UA) (Negative) Urine Ketones (Negative) Urine Blood (Negative) Urine Nitrite (Negative) Urine Bilirubin (Negative) Urine Urobilinogen (Negative) Ur Leukocyte Esterase (Negative) Urine WBC (Auto) (0-5) /hpf Urine RBC (Auto) (0-4) /hpf U Hyaline Cast (Auto) (0-5) /lpf U Epithel Cells (Auto) (0-5) /lpf Urine Bacteria (Auto) (Negative) Influenza Type A (PCR) (Neg) Influenza Type B (PCR) (Neg)
[2019-02-06] MEDS ORDERED: ACETAMINOPHEN 325 MG TAB PO PRN (11:38)
[2019-02-07] MEDS: D5W AND 1/2NSS + 30MEQ KCL 30 MEQ/1,000 ML BAG IV SCH (04:24)
[2019-02-07 06:26] LABS: Basophils # (auto) 0.03 K/uL (0-0.2); Basophils % (auto) 0.3 %; Eosinophils # (auto) 0.06 K/uL (0-0.5); Eosinophils % (auto) 0.5 %; Hematocrit (blood only) 37.3 % (37-47); Hemoglobin 12.3 g/dL (12.0-16.0); Immature Granulocytes # (auto) 0.04 K/uL (0.00-0.02); Immature Granulocytes % (auto) 0.3 %; Lymphocytes # (auto) 0.87 K/uL (1.2-3.4); Lymphocytes % (auto) 7.3 %; Mean Corpuscular Volume 82.7 fL (80-100); Mean Platelet Volume 10.2 fL (7.4-10.4); Monocytes # (auto) 0.71 K/uL (0.11-0.59); Monocytes % (auto) 5.9 %; Neutrophils # (auto) 10.29 K/uL (1.4-6.5); Neutrophils % (auto) 85.7 %; Platelet Count 201 K/uL (130-400); RDW Coefficient of Variation 13.9 % (11.5-14.5); RDW Standard Deviation 41.9 fL (36.4-46.3); Red Blood Count 4.51 M/uL (4.2-5.4)
[2019-02-07] MEDS: metroNIDAZOLE 500 MG/100 ML BAG IV SCH ×2 (07:26)
[2019-02-07] MEDS: ENOXAPARIN INJ 40 MG/0.4 ML SYR SQ SCH (07:26)
[2019-02-07] MEDS: CIPROFLOXACIN 400 MG/200 ML BAG IV SCH (07:26)
--- NOTE | 2019-02-07 10:37 | Surgery Progress Note ---
Date of Service February 07, 2019 Assessment & Plan (1) Acute appendicitis: POD # 2 s/p lap appy with microperforation - vitals stable, afebrile - Leukocytosis decreased to 12K (28.5K yesterday) - post op pain minimal and controlled - no n/v, tolerating regular diet - + bowel movement and flatus - urinating without difficulty Plan: Discharge home today Discharge instructions reviewed specifically with flight to [place] and back to [facility] (wearing RAMÓN hose and compression socks, frequent ambulating the aisle during flight) Rx for Percocet prn pain Rx for Cipro and Flagyl x 5 days Follow-up with PCP back in [facility] in 1-2 weeks Call office with any concerns in the interim Dr. Herman was present during my examination, agrees with above Subjective Feeling much better minimal pain at incision sites preop pain resolved tolerating regular diet, no n/v passing gas and liquid bowel movements ready to go home Review of Systems Review of Systems: All systems reviewed & are unremarkable except as noted in HPI & below Physical Exam Constitutional: WD/WN, vitals as above no acute distress and not ill appearing Respiratory: normal respiratory effort; no respiratory distress Gastrointestinal (Abdomen): Inspection/Auscultation: abdomen normal to inspection; abdomen not distended Percussion/Palpation: + abdomen tender (mild at incision sites) and abdomen soft; no guarding and abdomen not rigid Skin: no rashes, warm and dry + incision (Covered with dry dressings and intact) Psychiatric: A+Ox3, euthymic affect Results & Data Vital Signs (Past 12 Hours) Vital Signs Temp Pulse Resp BP Pulse Ox 02/07/19 07:40 36.5 C 63 16 129/82 98 02/06/19 23:00 36.7 C 63 16 138/57 L 96 Laboratory Results 02/07/19 Range/Units 06:03 WBC 12.00 H (4.8-10.8) K/uL RBC 4.51 (4.2-5.4) M/uL Hgb 12.3 (12.0-16.0) g/dL Hct 37.3 (37-47) % MCV 82.7 (80-100) fL MCH 27.3 (25-34) pg MCHC 33.0 (32-36) g/dL RDW Std Deviation 41.9 (36.4-46.3) fL RDW Coeff of Tania 13.9 (11.5-14.5) % Plt Count 201 (130-400) K/uL MPV 10.2 (7.4-10.4) fL Immature Gran % (Auto) 0.3 % Neut % (Auto) 85.7 % Lymph % (Auto) 7.3 % [place] % (Auto) 5.9 % Eos % (Auto) 0.5 % Baso % (Auto) 0.3 % Immature Gran # (Auto) 0.04 H (0.00-0.02) K/uL Neut # (Auto) 10.29 H (1.4-6.5) K/uL Lymph # (Auto) 0.87 L (1.2-3.4) K/uL [place] # (Auto) 0.71 H (0.11-0.59) K/uL Eos # (Auto) 0.06 (0-0.5) K/uL Baso # (Auto) 0.03 (0-0.2) K/uL (1) Acute appendicitis Appendicitis perforation presence: without perforation
--- NOTE | 2019-02-08 15:58 | Discharge Summary ---
Date of Service February 08, 2019 Admission HPI Per Admitting Provider pt is a 58 year-old female who presents to ER with 2 days history epigastric pain and today the pain is located at RLQ with nausea and vomiting, pt also feels chill, T- 38, some diarrhea, pt came to ER yesterday, now pt is still feels RLQ pain, pt had CT scan dx acute appendicitis, pt denies chest pain, no weakness, Allergies Principal Diagnosis acute appendicitis with microperforation Discharge Data Allergies Allergy/AdvReac Type Severity Reaction Status Date / Time cough medicine Allergy Mild Unknown Uncoded 02/05/19 18:30 Consultations 02/05/19 17:03 Consult General Surgery Stat 02/05/19 22:30 Consult Case Management - Discharge Planning Routine Procedures Performed Operation Date: 02/05/19 18:30 Actual Procedures p Laparoscopic Appendectomy(Not Applicable) - Chi Herman MD Ordered Studies 02/05/19 13:45 CT abd pelvis oral and IV con Stat Hospital Course (1) Acute appendicitis: Patient was taken to operating room for laparoscopic appendectomy possible open by Dr. Herman. Patient found to have severe acute appendicitis with microperforation however no abscess present. Patient tolerated procedure well and was transferred to recovery room and then to medical/surgical floor for post operative care. Started on clear liquids, IV fluids, IV Abx (cipro/flagyl), PO Percocet with breakthrough IV Dilaudid prn pain, IV Zofran prn nausea, activity as tolerated, SCDs and lovenox for DVT prophylaxis. POD # 1 , vitals stable, afebrile. Leukocytosis of 28.5K. Minimal post op pain and controlled. Tolerating clear liquids. Diet was advanced as tolerated. IV antibiotics were continued given elevated leukocytosis. POD # 2 vitals stable, afebrile, leukocytosis improved to 12K, tolerating regular diet, minimal pain. Patient was discharged on POD # 2 in stable condition. Discharged with TEDs given travel plans back home ([facility]) and advised frequent ambulation during long car and plane travel to prevent blood clots. She is to follow-up with primary care in [facility] in about 1-2 weeks. Total Time Total Time Spent Total Time Spent (In Minutes): 30 Total Time Includes: Examination of the Patient, Discharge Planning and Medication Reconciliation Discharge Plan Discharge Items Patient Disposition: Home - Self-Care Reason For Visit: ACUTE APPENDICITIS Discharge Diagnosis: Same Condition: Fair Discharge Goals: Decrease discomfort and Improve function Activity: Per 'Additional Instructions' section Non-emergency contact: Primary Care Provider and Surgeon Call non-emergency contact if: your pain is not controlled, your pain is worsening, your pain is unusual for you, your pain is concerning for you, you have a fever, your temperature is above 101, your wound has increased redness and your wound has increased drainage Follow-up/Referrals: PCP,NO [Primary Care Provider] - Diet: Regular Addtl Provider Instructions: No heavy lifting over 20 pounds for 4 weeks No strenuous activity for 4 weeks No submerging incisions underwater for 2 weeks (no bathing, swimming, or hot tubs) No driving while taking narcotic pain medication or until you are pain free You may shower starting tomorrow morning. You may sponge bath and wash hair in meantime. Tomorrow morning, remove outer dressings and then shower. Gently allow soap and water to run over incisions and pat dry. Leave steri strips on incisions for 7 days and then remove. They may fall off on their own that is okay. Walking and light activity is encouraged daily to prevent blood clots from forming in your legs. Recommend walking in the aisle on your plane flights every hour and getting out of the car to walk for 5-10 minutes on long car rides to prevent blood clots from forming. Also recommend wearing RAMÓN hose stockings during plane flights and long car rides over 1 hour long. Also could wear compression socks. You will be given prescription for narcotic pain medication (Percocet) as needed for moderate to severe pain. take as directed. This medication may cause drowsiness or constipation. You may take extra strength Tylenol (650 mg) every 4 hours or Ibuprofen (600 mg) every 6 hours as needed for mild pain. Take Ibuprofen with food. Finish entire course of oral antibiotics as prescribed for 5 days. Recommend follow-up with primary care physician back at home in 1-2 weeks to follow up from your surgery to make sure incisions look okay. Call surgical office in the interim before your travel at [phone] if you have an questions/concerns. Prescriptions: New oxycodone-acetaminophen [Percocet] 5-325 mg Tablet 1 tab PO Q4H PRN (Reason: pain) Qty: 10 RF: 0 ciprofloxacin HCl [Cipro] 500 mg tablet 500 mg PO BID Qty: 10 RF: 0 metronidazole [Flagyl] 500 mg tablet 500 mg PO TID Qty: 15 RF: 0 Continued ondansetron 4 mg tablet,disintegrating 4 mg PO Q6H PRN (Reason: nausea and vomiting) Qty: 10 RF: 0 Stand-Alone Forms: [facility], Opioid Pain Management, Work/School Release (Inpt) Discharge Orders: Discharge Order (Routine); Ordered 02/07/19 Ordered By: Nubia Irvin Admission Data Admit Date/Time: 02/05/19 18:48 Attending Provider: Chi Herman Admit Provider: Chi Herman Primary Care Provider: PCP,NO Other Providers: Chi Herman Service: Surgical Services Other Interventions: Discharge Summary Assessment (RN) Last Done: 02/07/19 12:10 Pending Studies at Discharge: Yes (appendix pathology) DC Date/Time DO NOT enter until pt leaves facility: 02/07/19 13:45
== END 2019-02-07 13:45 | disposition home or self-care (01) ==
LOC: ED 13:16 → 3W 18:30 → OR 18:30 → 3W 18:32